=== PATIENT | male | born 1995 | race Caucasian/White ===

== ENCOUNTER 2018-06-09 06:23 | Emergency (ER) | payer SELFPAY ==
[~2018-06-09] VITALS: Ht 175.3 cm; Wt 94.8 kg
[2018-06-09 06:28] VITALS: Ht 175.3 cm; Wt 94.8 kg
[2018-06-09 07:19] LABS: BASOPHIL % 0.4 % (0-2); PLATELET COUNT 156 x10^3mcL (130-400); RED CELL DISTRIBUTION WIDTH 13.8 % (11.5-14.5)
[2018-06-09 07:32] LABS: AMPHETAMINE QUAL UR NONE DETECTED (See below)
[2018-06-09 07:40] LABS: CALCIUM 8.6 mg/dL (8.5-10.1); CARBON DIOXIDE 27.2 mmol/L (21-32); CHLORIDE SERUM 104 mmol/L (98-107); CREATININE SERUM 0.9 mg/dL (0.7-1.3); GFR1 > 60 mL/min; GLUCOSE SERUM 94 mg/dL (74-106); POTASSIUM SERUM 3.9 mmol/L (3.5-5.1); SODIUM SERUM 139 mmol/L (136-145)
[2018-06-09 07:44] LABS: ALBUMIN 4.2 g/dL (3.4-5.0); ALKALINE PHOSPHATASE 65 U/L (46-116); ALT/SGPT 32 U/L (16-63); AST/SGOT 23 U/L (15-37); BILIRUBIN TOTAL 2.1 mg/dL (0.20-1.00); TOTAL PROTEIN, SERUM 7.8 g/dL (6.4-8.2)
[2018-06-09 10:14] VITALS: BP 123/63
== END 2018-06-09 10:14 | disposition home or self-care (01) ==
LOC: ED 06:23
PROVIDERS: Emergency Medicine
DX: R07.89 Other chest pain (principal)
CPT/HCPCS: 85378; J1885; J7030; Q0092

== ENCOUNTER 2018-11-22 00:11 | Emergency (ER) | payer OTHER ==
[~2018-11-22] VITALS: Ht 175.3 cm; Wt 90.7 kg
[2018-11-22 00:23] VITALS: Ht 175.3 cm; Wt 90.7 kg
[2018-11-22 02:17] LABS: BASOPHIL % 0.2 % (0-2); PLATELET COUNT 155 x10^3mcL (130-400); RED CELL DISTRIBUTION WIDTH 13.7 % (11.5-14.5)
[2018-11-22 02:26] LABS: CALCIUM 9.5 mg/dL (8.5-10.1); CHLORIDE SERUM 105 mmol/L (98-107); CREATININE SERUM 0.9 mg/dL (0.7-1.3); GFR1 > 60 mL/min; GLUCOSE SERUM 90 mg/dL (74-106); POTASSIUM SERUM 3.4 mmol/L (3.5-5.1); SODIUM SERUM 142 mmol/L (136-145)
[2018-11-22 02:29] LABS: microscopic required? NO
[2018-11-22 02:32] LABS: ALBUMIN 4.4 g/dL (3.4-5.0); ALKALINE PHOSPHATASE 58 U/L (46-116); ALT/SGPT 17 U/L (16-63); AST/SGOT 11 U/L (15-37); BILIRUBIN TOTAL 4.44 mg/dL (0.20-1.00); LIPASE 103 IU/L (73-393); TOTAL PROTEIN, SERUM 7.6 g/dL (6.4-8.2)
[2018-11-22 02:44] LABS: urine erythrocyte NEGATIVE (NEGATIVE)
[2018-11-22 04:30] VITALS: BP 112/70
== END 2018-11-22 04:31 | disposition home or self-care (01) ==
LOC: ED 00:11
PROVIDERS: Emergency Medicine
DX: R10.11 Right upper quadrant pain (principal); E80.6 Other disorders of bilirubin metabolism; E11.10 Type 2 diabetes mellitus with ketoacidosis without coma; R19.7 Diarrhea, unspecified; R11.10 Vomiting, unspecified; K76.0 Fatty (change of) liver, not elsewhere classified
CPT/HCPCS: J2270; J2405; Q0092

== ENCOUNTER 2018-11-23 20:16 | Emergency (ER) | payer OTHER ==
[~2018-11-23] VITALS: Ht 175.3 cm; Wt 90.7 kg
[2018-11-23 21:01] LABS: BASOPHIL % 0.3 % (0-2); PLATELET COUNT 166 x10^3mcL (130-400); RED CELL DISTRIBUTION WIDTH 13.4 % (11.5-14.5)
[2018-11-23 21:11] LABS: CALCIUM 9.4 mg/dL (8.5-10.1); CARBON DIOXIDE 26.6 mmol/L (21-32); CHLORIDE SERUM 106 mmol/L (98-107); CREATININE SERUM 0.9 mg/dL (0.7-1.3); GFR1 > 60 mL/min; GLUCOSE SERUM 108 mg/dL (74-106); POTASSIUM SERUM 3.6 mmol/L (3.5-5.1); SODIUM SERUM 142 mmol/L (136-145)
[2018-11-23 21:15] LABS: ALBUMIN 4.3 g/dL (3.4-5.0); ALKALINE PHOSPHATASE 56 U/L (46-116); ALT/SGPT 23 U/L (16-63); AST/SGOT 13 U/L (15-37); BILIRUBIN TOTAL 2.9 mg/dL (0.20-1.00); LIPASE 119 IU/L (73-393); TOTAL PROTEIN, SERUM 7.6 g/dL (6.4-8.2)
[2018-11-24 00:20] VITALS: BP 121/70
== END 2018-11-24 00:20 | disposition home or self-care (01) ==
LOC: ED 20:16
PROVIDERS: Emergency Medicine
DX: R07.89 Other chest pain (principal); M54.5 Low back pain; R11.10 Vomiting, unspecified; R19.7 Diarrhea, unspecified; R17 Unspecified jaundice
CPT/HCPCS: J2270; J2405

== ENCOUNTER 2019-01-27 08:48 | Emergency (ER) | payer OTHER ==
[~2019-01-27] VITALS: Ht 175.3 cm; Wt 92.1 kg
[2019-01-27 09:23] LABS: BASOPHIL % 0.4 % (0-2); PLATELET COUNT 135 x10^3mcL (130-400); RED CELL DISTRIBUTION WIDTH 13.6 % (11.5-14.5)
[2019-01-27 09:41] LABS: CALCIUM 8.5 mg/dL (8.5-10.1); CARBON DIOXIDE 30.1 mmol/L (21-32); CHLORIDE SERUM 106 mmol/L (98-107); CREATININE SERUM 1.3 mg/dL (0.7-1.3); GFR1 > 60 mL/min; GLUCOSE SERUM 109 mg/dL (74-106); POTASSIUM SERUM 3.4 mmol/L (3.5-5.1); SODIUM SERUM 143 mmol/L (136-145)
[2019-01-27 09:46] LABS: ALBUMIN 3.8 g/dL (3.4-5.0); ALKALINE PHOSPHATASE 68 U/L (46-116); ALT/SGPT 30 U/L (16-63); AST/SGOT 20 U/L (15-37); BILIRUBIN TOTAL 1.2 mg/dL (0.20-1.00)
[2019-01-27 13:25] VITALS: BP 99/52
== END 2019-01-27 13:25 | disposition home or self-care (01) ==
LOC: ED 08:48
PROVIDERS: Specialist
DX: R07.89 Other chest pain (principal); F41.9 Anxiety disorder, unspecified; K21.9 Gastro-esophageal reflux disease without esophagitis
CPT/HCPCS: J1885; J7030; Q0092

== ENCOUNTER 2019-02-14 05:26 | Emergency (ER) | payer OTHER ==
[~2019-02-14] VITALS: Ht 175.3 cm; Wt 95.7 kg
[2019-02-14 05:33] VITALS: Ht 175.3 cm; Wt 95.7 kg
[2019-02-14 07:20] VITALS: BP 120/53
== END 2019-02-14 07:20 | disposition home or self-care (01) ==
LOC: ED 05:26
DX: R07.89 Other chest pain (principal); K21.9 Gastro-esophageal reflux disease without esophagitis
CPT/HCPCS: Q0092

== ENCOUNTER 2019-02-25 04:18 | Emergency (ER) | payer OTHER ==
[~2019-02-25] VITALS: Ht 175.3 cm; Wt 73.9 kg
[2019-02-25 04:24] VITALS: Ht 175.3 cm; Wt 73.9 kg
[2019-02-25 06:37] VITALS: BP 113/47
== END 2019-02-25 04:24 | disposition home or self-care (01) ==
LOC: ED 04:18
DX: R06.4 Hyperventilation (principal); K21.9 Gastro-esophageal reflux disease without esophagitis
CPT/HCPCS: J2060

== ENCOUNTER 2019-03-24 04:41 | Emergency (ER) | payer OTHER ==
[~2019-03-24] VITALS: Ht 175.3 cm; Wt 94.9 kg
[2019-03-24 04:44] VITALS: Ht 175.3 cm; Wt 94.9 kg
[2019-03-24 05:14] LABS: BASOPHIL % 0.4 % (0-2); PLATELET COUNT 175 x10^3mcL (130-400); RED CELL DISTRIBUTION WIDTH 13.3 % (11.5-14.5)
[2019-03-24 07:55] LABS: ALBUMIN 4.7 g/dL (3.4-5.0); ALKALINE PHOSPHATASE 56 U/L (46-116); ALT/SGPT 32 U/L (16-63); AST/SGOT 14 U/L (15-37); BILIRUBIN TOTAL 2.91 mg/dL (0.20-1.00); CALCIUM 9.1 mg/dL (8.5-10.1); CARBON DIOXIDE 21.7 mmol/L (21-32); CHLORIDE SERUM 102 mmol/L (98-107); GFR1 > 60 mL/min; GLUCOSE SERUM 84 mg/dL (74-106); POTASSIUM SERUM 3.8 mmol/L (3.5-5.1); SODIUM SERUM 141 mmol/L (136-145)
[2019-03-24 08:02] LABS: TOTAL PROTEIN, SERUM 8.5 g/dL (6.4-8.2)
[2019-03-24 08:12] LABS: LIPASE 107 IU/L (73-393)
[2019-03-24 09:23] VITALS: BP 119/75
== END 2019-03-24 09:23 | disposition home or self-care (01) ==
LOC: ED 04:41
PROVIDERS: Emergency Medicine
DX: E80.6 Other disorders of bilirubin metabolism (principal); R10.11 Right upper quadrant pain; R11.2 Nausea with vomiting, unspecified; K21.9 Gastro-esophageal reflux disease without esophagitis
CPT/HCPCS: J2270; J2405; J7030; Q0092

== ENCOUNTER 2019-04-27 01:11 | Emergency (ER) | payer OTHER ==
[~2019-04-27] VITALS: Ht 175.3 cm; Wt 98.0 kg
[2019-04-27 01:20] VITALS: Ht 175.3 cm; Wt 98.0 kg
[2019-04-27 04:04] VITALS: BP 124/81
== END 2019-04-27 04:05 | disposition home or self-care (01) ==
LOC: ED 01:11
DX: K76.0 Fatty (change of) liver, not elsewhere classified (principal); R10.11 Right upper quadrant pain; K21.9 Gastro-esophageal reflux disease without esophagitis
CPT/HCPCS: J1885; J3010; Q0162

== ENCOUNTER 2019-06-22 01:43 | Emergency (ER) | payer OTHER ==
[~2019-06-22] VITALS: Ht 175.3 cm; Wt 93.0 kg
[2019-06-22 02:17] VITALS: Ht 175.3 cm; Wt 93.0 kg
[2019-06-22 03:17] LABS: BASOPHIL % 0.6 % (0-2); PLATELET COUNT 146 x10^3mcL (130-400); RED CELL DISTRIBUTION WIDTH 13.6 % (11.5-14.5)
[2019-06-22 04:03] LABS: CALCIUM 8.7 mg/dL (8.5-10.1); CARBON DIOXIDE 26.9 mmol/L (21-32); CHLORIDE SERUM 106 mmol/L (98-107); CREATININE SERUM 0.9 mg/dL (0.7-1.3); GFR1 > 60 mL/min; GLUCOSE SERUM 91 mg/dL (74-106); POTASSIUM SERUM 3.9 mmol/L (3.5-5.1); SODIUM SERUM 140 mmol/L (136-145)
[2019-06-22 04:07] LABS: ALBUMIN 4.2 g/dL (3.4-5.0); ALKALINE PHOSPHATASE 54 U/L (46-116); ALT/SGPT 21 U/L (16-63); AMYLASE 72 U/L (25-115); AST/SGOT 20 U/L (15-37); BILIRUBIN TOTAL 3.51 mg/dL (0.20-1.00); LIPASE 90 IU/L (73-393); TOTAL PROTEIN, SERUM 7.4 g/dL (6.4-8.2)
[2019-06-22 05:12] LABS: microscopic required? NO
[2019-06-22 05:22] LABS: UA SPECIFIC GRAVITY <=1.005 (1.005-1.035); urine erythrocyte NEGATIVE (NEGATIVE)
[2019-06-22 06:43] VITALS: BP 117/68
== END 2019-06-22 06:43 | disposition home or self-care (01) ==
LOC: ED 01:43
PROVIDERS: Emergency Medicine
DX: K52.9 Noninfective gastroenteritis and colitis, unspecified (principal); R11.0 Nausea; R30.0 Dysuria; R10.30 Lower abdominal pain, unspecified
CPT/HCPCS: J2270

== ENCOUNTER 2019-06-29 00:22 | Emergency (ER) | payer OTHER ==
[~2019-06-29] VITALS: Ht 175.3 cm; Wt 92.7 kg
[2019-06-29 00:26] VITALS: Ht 175.3 cm; Wt 92.7 kg
[2019-06-29 04:06] LABS: CALCIUM 8.7 mg/dL (8.5-10.1); CARBON DIOXIDE 27.5 mmol/L (21-32); CHLORIDE SERUM 104 mmol/L (98-107); GFR1 > 60 mL/min; GLUCOSE SERUM 96 mg/dL (74-106); POTASSIUM SERUM 3.9 mmol/L (3.5-5.1); SODIUM SERUM 139 mmol/L (136-145)
[2019-06-29 04:08] LABS: BASOPHIL % 0.3 % (0-2); PLATELET COUNT 175 x10^3mcL (130-400); RED CELL DISTRIBUTION WIDTH 13.4 % (11.5-14.5)
[2019-06-29 04:12] LABS: ALBUMIN 4.3 g/dL (3.4-5.0); ALKALINE PHOSPHATASE 52 U/L (46-116); ALT/SGPT 23 U/L (16-63); AMYLASE 92 U/L (25-115); AST/SGOT 18 U/L (15-37); BILIRUBIN TOTAL 1.5 mg/dL (0.20-1.00); LIPASE 102 IU/L (73-393); TOTAL PROTEIN, SERUM 7.6 g/dL (6.4-8.2)
[2019-06-29 06:07] VITALS: BP 127/57
== END 2019-06-29 06:07 | disposition home or self-care (01) ==
LOC: ED 00:22
PROVIDERS: Emergency Medicine
DX: R10.9 Unspecified abdominal pain (principal); R19.7 Diarrhea, unspecified; R39.198 Other difficulties with micturition; R35.0 Frequency of micturition; K21.9 Gastro-esophageal reflux disease without esophagitis
CPT/HCPCS: J2270; J7030

== ENCOUNTER 2019-07-01 04:21 | Emergency (ER) | payer OTHER ==
[~2019-07-01] VITALS: Ht 175.3 cm; Wt 90.9 kg
[2019-07-01 04:32] VITALS: Ht 175.3 cm; Wt 90.9 kg
[2019-07-01 06:53] LABS: PLATELET COUNT 179 x10^3mcL (130-400); RED CELL DISTRIBUTION WIDTH 12.7 % (11.5-14.5)
[2019-07-01 06:56] LABS: CALCIUM 8.8 mg/dL (8.5-10.1); CARBON DIOXIDE 26.9 mmol/L (21-32); CHLORIDE SERUM 103 mmol/L (98-107); GFR1 > 60 mL/min; GLUCOSE SERUM 89 mg/dL (74-106); POTASSIUM SERUM 3.7 mmol/L (3.5-5.1); SODIUM SERUM 139 mmol/L (136-145)
[2019-07-01 07:02] LABS: ALBUMIN 4.3 g/dL (3.4-5.0); ALKALINE PHOSPHATASE 50 U/L (46-116); ALT/SGPT 23 U/L (16-63); AST/SGOT 20 U/L (15-37); LIPASE 99 IU/L (73-393); TOTAL PROTEIN, SERUM 7.4 g/dL (6.4-8.2)
[2019-07-01 07:19] LABS: BASOPHIL % 3.1 % (0-2)
[2019-07-01 08:06] VITALS: BP 115/75
== END 2019-07-01 08:06 | disposition home or self-care (01) ==
LOC: ED 04:21
PROVIDERS: Emergency Medicine
DX: R10.12 Left upper quadrant pain (principal); K21.9 Gastro-esophageal reflux disease without esophagitis
CPT/HCPCS: 36415; J1885; J2270

== ENCOUNTER 2019-09-05 03:57 | Emergency (ER) | payer OTHER ==
[~2019-09-05] VITALS: Ht 175.3 cm; Wt 94.8 kg
[2019-09-05 04:04] VITALS: Ht 175.3 cm; Wt 94.8 kg
[2019-09-05 05:08] LABS: BASOPHIL % 0.5 % (0-2); PLATELET COUNT 153 x10^3mcL (130-400); RED CELL DISTRIBUTION WIDTH 13.5 % (11.5-14.5)
[2019-09-05 05:22] LABS: AMPHETAMINE QUAL UR NONE DETECTED (See below)
[2019-09-05 05:24] LABS: ALBUMIN 4.2 g/dL (3.4-5.0); ALKALINE PHOSPHATASE 63 U/L (46-116); ALT/SGPT 32 U/L (16-63); AST/SGOT 18 U/L (15-37); BILIRUBIN TOTAL 1.8 mg/dL (0.20-1.00); CALCIUM 9.3 mg/dL (8.5-10.1); CHLORIDE SERUM 103 mmol/L (98-107); CREATININE SERUM 0.9 mg/dL (0.7-1.3); GFR1 > 60 mL/min; GLUCOSE SERUM 104 mg/dL (74-106); LIPASE 166 IU/L (73-393); POTASSIUM SERUM 3.5 mmol/L (3.5-5.1); SODIUM SERUM 139 mmol/L (136-145); TOTAL PROTEIN, SERUM 7.5 g/dL (6.4-8.2)
[2019-09-05 06:00] VITALS: BP 120/78
== END 2019-09-05 06:00 | disposition home or self-care (01) ==
LOC: ED 03:57
PROVIDERS: Emergency Medicine
DX: R10.13 Epigastric pain (principal); K21.9 Gastro-esophageal reflux disease without esophagitis
CPT/HCPCS: 36415; J1885; Q0092

== ENCOUNTER 2019-10-29 00:39 | Emergency (ER) | payer OTHER ==
[~2019-10-29] VITALS: Ht 175.3 cm; Wt 104.8 kg
[2019-10-29 00:45] VITALS: Ht 175.3 cm; Wt 104.8 kg
[2019-10-29 05:03] VITALS: BP 101/87
== END 2019-10-29 05:03 | disposition home or self-care (01) ==
LOC: ED 00:39
DX: L05.01 Pilonidal cyst with abscess (principal); K21.9 Gastro-esophageal reflux disease without esophagitis
CPT/HCPCS: J2001

== ENCOUNTER 2019-10-31 08:14 | Emergency (ER) | payer OTHER ==
[~2019-10-31] VITALS: Ht 175.3 cm; Wt 103.4 kg
[2019-10-31 08:22] VITALS: BP 113/64; Ht 175.3 cm; Wt 103.4 kg
== END 2019-10-31 09:57 | disposition left against medical advice (07) ==
LOC: ED 08:14
DX: Z53.21 Procedure and treatment not carried out due to patient leaving prior to being seen by health care provider (principal)

== ENCOUNTER 2019-12-08 01:30 | Emergency (ER) | payer OTHER ==
[~2019-12-08] VITALS: Ht 175.3 cm; Wt 100.7 kg
[2019-12-08 01:39] VITALS: Ht 175.3 cm; Wt 100.7 kg
[2019-12-08 04:16] LABS: BASOPHIL % 0.3 % (0-2); PLATELET COUNT 164 x10^3mcL (130-400); RED CELL DISTRIBUTION WIDTH 13.2 % (11.5-14.5)
[2019-12-08 04:43] LABS: CALCIUM 9.4 mg/dL (8.5-10.1); CARBON DIOXIDE 27.5 mmol/L (21-32); CHLORIDE SERUM 102 mmol/L (98-107); CREATININE SERUM 1.1 mg/dL (0.7-1.3); GFR1 > 60 mL/min; GLUCOSE SERUM 99 mg/dL (74-106); POTASSIUM SERUM 3.8 mmol/L (3.5-5.1); SODIUM SERUM 137 mmol/L (136-145)
[2019-12-08 04:47] LABS: ALBUMIN 4.5 g/dL (3.4-5.0); ALKALINE PHOSPHATASE 58 U/L (46-116); ALT/SGPT 24 U/L (16-63); AMYLASE 78 U/L (25-115); AST/SGOT 17 U/L (15-37); BILIRUBIN TOTAL 2.48 mg/dL (0.20-1.00); LIPASE 123 IU/L (73-393); TOTAL PROTEIN, SERUM 7.8 g/dL (6.4-8.2)
[2019-12-08 07:09] VITALS: BP 104/62
[2019-12-16] MEDS ORDERED: ELA25 PO (11:51)
[2019-12-16] MEDS ORDERED: ASA400 PO ×2 (11:56→22:50)
== END 2019-12-08 07:10 | disposition home or self-care (01) ==
LOC: ED 01:30
PROVIDERS: Emergency Medicine
DX: K52.9 Noninfective gastroenteritis and colitis, unspecified (principal); K21.9 Gastro-esophageal reflux disease without esophagitis; N39.0 Urinary tract infection, site not specified
CPT/HCPCS: J2270; J7030; Q9967

== ENCOUNTER 2019-12-19 13:57 | Emergency (ER) | payer OTHER ==
[~2019-12-19] VITALS: Ht 175.3 cm; Wt 99.8 kg
[~2019-12-19 13:57] MED LIST: ASA400 PO; ELA25 PO
[2019-12-19 17:31] LABS: BASOPHIL % 0.3 % (0-2); PLATELET COUNT 170 x10^3mcL (130-400); RED CELL DISTRIBUTION WIDTH 13.4 % (11.5-14.5)
[2019-12-19 17:59] LABS: CALCIUM 8.8 mg/dL (8.5-10.1); CARBON DIOXIDE 17.3 mmol/L (21-32); CHLORIDE SERUM 102 mmol/L (98-107); GFR1 > 60 mL/min; GLUCOSE SERUM 88 mg/dL (74-106); POTASSIUM SERUM 3.8 mmol/L (3.5-5.1); SODIUM SERUM 138 mmol/L (136-145)
[2019-12-19 18:04] LABS: ALBUMIN 4.2 g/dL (3.4-5.0); ALKALINE PHOSPHATASE 46 U/L (46-116); ALT/SGPT 22 U/L (16-63); AST/SGOT 15 U/L (15-37); BILIRUBIN TOTAL 2.2 mg/dL (0.20-1.00); LIPASE 99 IU/L (73-393); TOTAL PROTEIN, SERUM 7.3 g/dL (6.4-8.2)
[2019-12-19 18:15] VITALS: BP 103/62
== END 2019-12-19 18:21 | disposition home or self-care (01) ==
LOC: ED 13:57
DX: K51.90 Ulcerative colitis, unspecified, without complications (principal); K21.9 Gastro-esophageal reflux disease without esophagitis
CPT/HCPCS: J1885; J2930; J7030